=== PATIENT | female | born 1945 | race Two or more races ===

== ENCOUNTER → 2023-11-13 | Outpatient (CLI) | payer OTHER ==
[2023-11-13 07:25] LABS: Urine Blood 1+ /uL (Negative); Urine Clarity Clear (Clear); Urine Color Colorless (Yellow); Urine Protein, UAD Negative (Negative); Urine Specific Gravity 1.006 (1.001-1.035); Urine Urobilinogen Normal (Negative); Urine pH 6.5 (5.0-8.0)
[2023-11-13 07:28] LABS: Folate (Folic Acid) > 24.00 ng/mL (>5.38)
[2023-11-13 07:29] LABS: Ferritin 327.4 ng/mL (10-291)
[2023-11-13 07:33] LABS: Basophils # (auto) 0 10 ^3/uL (0-0.2); Basophils % (auto) 0.6 % (0.0-2.0); Eosinophils # (auto) 0.6 10 ^3/uL (0-0.8); Eosinophils % (auto) 7.9 % (0.0-7.0); Hematocrit 32.4 % (36.0-46.0); Hemoglobin 10.8 g/dL (12.2-16.2); Lymphocytes # (auto) 1.8 10 ^3/uL (0.4-5.4); Lymphocytes % (auto) 24.9 % (10.0-50.0); Mean Corpuscular Hemoglobin 31.1 pg (28.0-32.0); Mean Corpuscular Hgb Conc. 33.4 g/dL (32.0-36.0); Monocytes # (auto) 0.4 10 ^3/uL (0-1.3); Monocytes % (auto) 6.3 % (0.0-12.0); Neutrophils # (auto) 4.3 10 ^3/uL (1.6-8.6); Neutrophils % (auto) 60.3 % (37.0-80.0); Red Blood Cells 3.49 10^6/uL (4.0-5.20); Red Cell Distribution Width 13.3 % (11.8-14.3); White Blood Cell 7.1 10^3/uL (4.4-10.8)
[2023-11-13 07:35] LABS: % Iron Saturation 25.1 % (15-50)
[2023-11-13 07:37] LABS: Alanine Aminotransferase 14 U/L (7-40); Albumin 4.7 g/dL (3.2-4.8); Alkaline Phosphatase 53 U/L (46-116); Anion Gap 11 (5-15); Aspartate Aminotransferase 18 U/L (13-40); BUN/Creatinine Ratio 12.8 (10.0-20.0); Bilirubin, Total 0.5 mg/dL (0.2-1.0); Blood Urea Nitrogen 18 mg/dL (9-23); Calcium 9.9 mg/dL (8.5-10.1); Carbon Dioxide 24 mmol/L (20-30); Chloride 107 mmol/L (98-107); Cholesterol 145 mg/dL (< 200); Glucose 112 mg/dL (74-106); HDL Cholesterol 61 mg/dL (40-59); LDL Cholesterol 64 mg/dL (< 100); Potassium 4.1 mmol/L (3.5-5.1); Sodium 142 mmol/L (136-145); Total Protein 7.8 g/dL (5.7-8.2); Triglycerides 109 mg/dL (< 150)
== END | disposition home or self-care (01) ==
LOC: LAB 06:16
PROVIDERS: ATTEND Family Medicine
DX: I12.9 Hypertensive chronic kidney disease with stage 1 through stage 4 chronic kidney disease, or unspecified chronic kidney disease (principal); E11.22 Type 2 diabetes mellitus with diabetic chronic kidney disease; N18.9 Chronic kidney disease, unspecified; E11.65 Type 2 diabetes mellitus with hyperglycemia; E11.42 Type 2 diabetes mellitus with diabetic polyneuropathy; E78.5 Hyperlipidemia, unspecified; D64.9 Anemia, unspecified; M81.0 Age-related osteoporosis without current pathological fracture; E11.29 Type 2 diabetes mellitus with other diabetic kidney complication
CPT/HCPCS: 36415; 80053; 80061; 81003; 82043; 82607; 82728; 82746; 83036; 83540; 83550; 84443; 84550; 85025

== ENCOUNTER → 2023-11-24 | Outpatient (CLI) | payer OTHER ==
[2023-11-24 09:37] LABS: Creatinine, Urine 45.95 mg/dL (30.0-125.0); Protein, Urine 7.4 mg/dL (0.0-11.9)
[2023-11-24 12:20] LABS: Urine Protein/Creatinine Ratio 0.16
[2023-11-25 14:06] LABS: Alpha-1-Globulin Urine 3.8 % (.); Alpha-2-Globulin Urine 10.8 % (.); Beta Globulin Urine 20.2 % (.); Gamma Globulin Urine 17.3 % (.); Protein 24hr calculated 130 mg/24 hr (30-150); Protein Total Urine 10.8 mg/dL (Not Estab.)
== END | disposition home or self-care (01) ==
LOC: LAB 08:32
PROVIDERS: ATTEND Internal Medicine Nephrology
DX: N18.31 Chronic kidney disease, stage 3a (principal); E56.9 Vitamin deficiency, unspecified; E21.3 Hyperparathyroidism, unspecified; R80.9 Proteinuria, unspecified; M10.9 Gout, unspecified; D63.1 Anemia in chronic kidney disease
CPT/HCPCS: 82270; 82570; 82575; 84156; 84166; 84300; 86335

== ENCOUNTER → 2024-01-21 | Outpatient (CLI) | payer OTHER ==
[2024-01-21 06:31] LABS: Urine Bacteria None Seen /hpf (None Seen)
[2024-01-21 07:12] LABS: Urine Blood Negative /uL (Negative); Urine Clarity Clear (Clear); Urine Protein, UAD Negative (Negative); Urine Specific Gravity 1.004 (1.001-1.035); Urine Urobilinogen Normal (Negative); Urine WBC <1 /hpf (0 - 5)
[2024-01-21 07:16] LABS: Basophils # (auto) 0 10 ^3/uL (0-0.2); Basophils % (auto) 0.8 % (0.0-2.0); Eosinophils # (auto) 0.7 10 ^3/uL (0-0.8); Eosinophils % (auto) 11.3 % (0.0-7.0); Hematocrit 31.9 % (36.0-46.0); Hemoglobin 10.5 g/dL (12.2-16.2); Lymphocytes # (auto) 1.3 10 ^3/uL (0.4-5.4); Lymphocytes % (auto) 20.5 % (10.0-50.0); Mean Corpuscular Hemoglobin 30.8 pg (28.0-32.0); Mean Corpuscular Hgb Conc. 33.1 g/dL (32.0-36.0); Mean Corpuscular Volume 93.1 fL (80.0-100.0); Monocytes # (auto) 0.4 10 ^3/uL (0-1.3); Monocytes % (auto) 6.1 % (0.0-12.0); Neutrophils # (auto) 3.9 10 ^3/uL (1.6-8.6); Neutrophils % (auto) 61.3 % (37.0-80.0); Red Blood Cells 3.43 10^6/uL (4.0-5.20); Red Cell Distribution Width 13.3 % (11.8-14.3); White Blood Cell 6.4 10^3/uL (4.4-10.8)
[2024-01-21 07:19] LABS: Urine Color Straw (Yellow)
[2024-01-21 07:38] LABS: Protein, Urine 18.1 mg/dL (0.0-11.9)
[2024-01-21 07:40] LABS: Potassium 4.4 mmol/L (3.5-5.1)
[2024-01-21 07:41] LABS: Calcium 9.7 mg/dL (8.5-10.1); Creatinine, Urine 15.69 mg/dL (30.0-125.0); Urine Protein/Creatinine Ratio 1.15
[2024-01-21 07:46] LABS: Albumin 4.7 g/dL (3.2-4.8); BUN/Creatinine Ratio 15.3 (10.0-20.0)
[2024-01-21 07:48] LABS: Phosphorus 4.1 mg/dL (2.4-5.1)
[2024-01-21 07:58] LABS: Uric Acid 5.9 mg/dL (3.1-7.8)
[2024-01-21 08:32] LABS: 24 Hr. Total Protein, Urine 298.6 mg/24 Hr (<149.1)
== END | disposition home or self-care (01) ==
LOC: LAB 06:18
PROVIDERS: ATTEND Internal Medicine Nephrology
DX: N18.31 Chronic kidney disease, stage 3a (principal); R80.9 Proteinuria, unspecified; M10.9 Gout, unspecified; E21.3 Hyperparathyroidism, unspecified; E56.9 Vitamin deficiency, unspecified; D63.1 Anemia in chronic kidney disease
CPT/HCPCS: 36415; 80069; 81001; 82306; 82570; 83970; 84156; 84300; 84550; 85025

== ENCOUNTER → 2024-12-01 | Outpatient (CLI) | payer OTHER ==
[2024-12-01 06:38] LABS: Urine Bacteria None Seen /hpf (None Seen)
[2024-12-01 07:12] LABS: Urine Blood TRACE /uL (Negative); Urine Clarity Clear (Clear); Urine Color Colorless (Yellow); Urine Protein, UAD TRACE (Negative); Urine Specific Gravity 1.009 (1.001-1.035); Urine Squamous Epithelial Cell FEW /hpf (<5); Urine Urobilinogen Normal (Negative); Urine WBC < 1 /HPF (0-5)
[2024-12-01 07:17] LABS: Alanine Aminotransferase 15 U/L (7-40); Alkaline Phosphatase 56 U/L (46-116); Anion Gap 13 (5-15); BUN/Creatinine Ratio 18.3 (10.0-20.0); Calcium 10.3 mg/dL (8.7-10.4); Carbon Dioxide 23 mmol/L (20-31); Chloride 104 mmol/L (98-107); GFR African American 37 mL/min; GFR Non-African American 31 mL/min; Potassium 4.5 mmol/L (3.5-5.1); Sodium 140 mmol/L (136-145); Triglycerides 105 mg/dL (< 150)
[2024-12-01 07:18] LABS: LDL Cholesterol 73 mg/dL (< 100)
[2024-12-01 07:19] LABS: Aspartate Aminotransferase 14 U/L (13-40); Bilirubin, Total 0.5 mg/dL (0.2-1.0); Cholesterol 175 mg/dL (< 200)
[2024-12-01 07:27] LABS: Albumin 5.1 g/dL (3.2-4.8); Blood Urea Nitrogen 31 mg/dL (9-23); Glucose 120 mg/dL (74-106); HDL Cholesterol 81 mg/dL (40-59)
[2024-12-01 07:28] LABS: Hematocrit 35.2 % (36.0-46.0); Hemoglobin 11.5 g/dL (12.2-16.2); Mean Corpuscular Hemoglobin 30.9 pg (28.0-32.0); Mean Corpuscular Hgb Conc. 32.8 g/dL (32.0-36.0); Mean Corpuscular Volume 94.3 fL (80.0-100.0); Platelet Count (auto) 253 10^3/uL (140-450); Red Blood Cells 3.74 10^6/uL (4.0-5.20); Red Cell Distribution Width 13.3 % (11.8-14.3); White Blood Cell 6.7 10^3/uL (4.4-10.8)
[2024-12-01 07:35] LABS: Band Neutrophils % (manual) 0; Basophils % (manual) 0 (0.0-2.0); Blast Cells 0; Metamyelocytes % 0; Myelocytes % 0; Promyelocytes % 0; Reactive Lymphocytes 0
[2024-12-01 07:40] LABS: Creatinine, Urine 39.05 mg/dL (30.0-125.0)
[2024-12-01 08:14] LABS: Eosinophils % (manual) 12 (0-7); Lymphocytes % (manual) 16 (10.0-50.0); Monocytes % (manual) 2 (0-12)
[2024-12-01 08:15] LABS: Platelet Estimate Adequate
[2024-12-01 10:48] LABS: Uric Acid 6.7 mg/dL (3.1-7.8)
== END | disposition home or self-care (01) ==
LOC: LAB 06:09
PROVIDERS: ATTEND Family Medicine
DX: I12.9 Hypertensive chronic kidney disease with stage 1 through stage 4 chronic kidney disease, or unspecified chronic kidney disease (principal); E11.22 Type 2 diabetes mellitus with diabetic chronic kidney disease; N18.32 Chronic kidney disease, stage 3b; E11.65 Type 2 diabetes mellitus with hyperglycemia; N20.0 Calculus of kidney; E78.2 Mixed hyperlipidemia
CPT/HCPCS: 36415; 80053; 80061; 80069; 81001; 82043; 82306; 82570; 83036; 83605; 83970; 84550; 85007; 85027

== ENCOUNTER → 2025-02-15 | Outpatient (CLI) | payer OTHER ==
[2025-02-15 06:51] LABS: Hematocrit 33.7 % (36.0-46.0); Hemoglobin 11.4 g/dL (12.2-16.2); Mean Corpuscular Hemoglobin 31.6 pg (28.0-32.0); Mean Corpuscular Hgb Conc. 33.8 g/dL (32.0-36.0); Mean Corpuscular Volume 93.5 fL (80.0-100.0); Platelet Count (auto) 235 10^3/uL (140-450); Red Cell Distribution Width 12.9 % (11.8-14.3); White Blood Cell 6.8 10^3/uL (4.4-10.8)
[2025-02-15 06:52] LABS: Urine Bacteria FEW /hpf (None Seen); Urine Blood Negative /uL (Negative); Urine Clarity Clear (Clear); Urine Color Colorless (Yellow); Urine Protein, UAD TRACE (Negative); Urine Squamous Epithelial Cell FEW /hpf (<5); Urine Urobilinogen Normal (Negative); Urine WBC < 1 /HPF (0-5); Urine pH 6.5 (5.0-9.0)
[2025-02-15 07:13] LABS: Band Neutrophils % (manual) 0; Basophils % (manual) 0 (0.0-2.0); Blast Cells 0; Metamyelocytes % 0; Myelocytes % 0; Promyelocytes % 0; Reactive Lymphocytes 0
[2025-02-15 07:40] LABS: Alanine Aminotransferase 15 U/L (7-40); Alkaline Phosphatase 57 U/L (46-116); Anion Gap 10 (5-15); Aspartate Aminotransferase 16 U/L (13-40); BUN/Creatinine Ratio 18.8 (10.0-20.0); Carbon Dioxide 26 mmol/L (20-31); Chloride 106 mmol/L (98-107); Cholesterol 159 mg/dL (< 200); LDL Cholesterol 60 mg/dL (< 100); Potassium 4.6 mmol/L (3.5-5.1); Sodium 142 mmol/L (136-145); Total Protein 7.9 g/dL (5.7-8.2); Triglycerides 117 mg/dL (< 150)
[2025-02-15 07:41] LABS: Albumin 4.8 g/dL (3.2-4.8); Bilirubin, Total 0.4 mg/dL (0.2-1.0); Blood Urea Nitrogen 33 mg/dL (9-23); Calcium 10.5 mg/dL (8.7-10.4); Glucose 113 mg/dL (74-106); HDL Cholesterol 76 mg/dL (40-59)
[2025-02-15 07:52] LABS: Uric Acid 6.5 mg/dL (3.1-7.8)
[2025-02-15 09:23] LABS: Eosinophils % (manual) 22 (0-7); Lymphocytes % (manual) 20 (10.0-50.0); Monocytes % (manual) 5 (0-12); Platelet Estimate Adequate; RBC Morphology Normal
== END | disposition home or self-care (01) ==
LOC: LAB 06:06
PROVIDERS: ATTEND Family Medicine
DX: E11.610 Type 2 diabetes mellitus with diabetic neuropathic arthropathy (principal); E11.22 Type 2 diabetes mellitus with diabetic chronic kidney disease; Z18.32 Retained tooth; N18.32 Chronic kidney disease, stage 3b; N20.0 Calculus of kidney; E11.618 Type 2 diabetes mellitus with other diabetic arthropathy; E05.90 Thyrotoxicosis, unspecified without thyrotoxic crisis or storm; Q61.5 Medullary cystic kidney; Z00.01 Encounter for general adult medical examination with abnormal findings
CPT/HCPCS: 36415; 80053; 80061; 81001; 82043; 82270; 83036; 84443; 84550; 85007; 85027

== ENCOUNTER 2025-04-28 07:49 | Outpatient (CLI) | payer OTHER ==
[2025-04-28 08:52] LABS: Urine Protein, UAD Negative (Negative)
== END 2025-04-28 17:00 | disposition home or self-care (01) ==
LOC: LAB 07:49
PROVIDERS: ATTEND Urology
DX: N39.9 Disorder of urinary system, unspecified (principal)
CPT/HCPCS: 81001; 87086

== ENCOUNTER 2025-05-10 06:18 | Outpatient (CLI) | payer OTHER ==
[2025-05-10 08:02] LABS: Alanine Aminotransferase 14 U/L (7-40); Alkaline Phosphatase 48 U/L (46-116); Anion Gap 11 (5-15); BUN/Creatinine Ratio 18.9 (10.0-20.0); Calcium 9.9 mg/dL (8.7-10.4); Carbon Dioxide 23 mmol/L (20-31); Chloride 106 mmol/L (98-107); Cholesterol 156 mg/dL (< 200); Potassium 4.8 mmol/L (3.5-5.1); Sodium 140 mmol/L (136-145); Total Protein 7.6 g/dL (5.7-8.2); Triglycerides 118 mg/dL (< 150)
[2025-05-10 08:03] LABS: Bilirubin, Total 0.5 mg/dL (0.2-1.0)
[2025-05-10 08:05] LABS: Albumin 4.9 g/dL (3.2-4.8); Blood Urea Nitrogen 33 mg/dL (9-23); Glucose 108 mg/dL (74-106); HDL Cholesterol 71 mg/dL (40-59)
[2025-05-10 08:31] LABS: Urine Protein, UAD Negative (Negative)
[2025-05-10 08:35] LABS: Protein, Urine 16.7 mg/dL (1-14)
== END 2025-05-10 17:00 | disposition home or self-care (01) ==
LOC: LAB 06:18
PROVIDERS: ATTEND Family Medicine
DX: I12.9 Hypertensive chronic kidney disease with stage 1 through stage 4 chronic kidney disease, or unspecified chronic kidney disease (principal); E11.22 Type 2 diabetes mellitus with diabetic chronic kidney disease; N18.30 Chronic kidney disease, stage 3 unspecified; N39.0 Urinary tract infection, site not specified; E11.65 Type 2 diabetes mellitus with hyperglycemia; R80.9 Proteinuria, unspecified; E21.3 Hyperparathyroidism, unspecified; M10.9 Gout, unspecified; E55.9 Vitamin D deficiency, unspecified; E78.5 Hyperlipidemia, unspecified; E78.2 Mixed hyperlipidemia; D63.1 Anemia in chronic kidney disease
CPT/HCPCS: 36415; 80053; 80061; 81001; 82570; 83036; 84156

== ENCOUNTER → 2025-08-10 | Outpatient (CLI) | payer OTHER ==
[2025-08-10 07:26] LABS: Hematocrit 32.8 % (36.0-46.0); Hemoglobin 11.0 g/dL (12.2-16.2); Mean Corpuscular Hemoglobin 31.8 pg (28.0-32.0); Mean Corpuscular Volume 94.6 fL (80.0-100.0)
[2025-08-10 07:30] LABS: Urine Protein, UAD Negative (Negative)
[2025-08-10 07:52] LABS: Alanine Aminotransferase 14 U/L (7-40); Albumin 4.7 g/dL (3.2-4.8); Alkaline Phosphatase 54 U/L (46-116); Anion Gap 13 (5-15); BUN/Creatinine Ratio 15.5 (10.0-20.0); Calcium 9.3 mg/dL (8.7-10.4); Carbon Dioxide 22 mmol/L (20-31); Cholesterol 152 mg/dL (< 200); Potassium 4.8 mmol/L (3.5-5.1); Sodium 144 mmol/L (136-145); Total Protein 7.9 g/dL (5.7-8.2); Triglycerides 99 mg/dL (< 150)
[2025-08-10 07:53] LABS: Bilirubin, Total 0.5 mg/dL (0.2-1.0)
[2025-08-10 07:59] LABS: Blood Urea Nitrogen 28 mg/dL (9-23); Chloride 109 mmol/L (98-107); Glucose 106 mg/dL (74-106); HDL Cholesterol 72 mg/dL (40-59)
[2025-08-10 08:07] LABS: Protein, Urine 20.5 mg/dL (1-14)
[2025-08-10 08:44] LABS: Total Cells Counted 100.0 (100)
[2025-08-10 08:50] LABS: Uric Acid 6.4 mg/dL (3.1-7.8)
== END | disposition home or self-care (01) ==
LOC: LAB 06:58
PROVIDERS: ATTEND Internal Medicine
DX: E11.22 Type 2 diabetes mellitus with diabetic chronic kidney disease (principal); N18.30 Chronic kidney disease, stage 3 unspecified; E11.21 Type 2 diabetes mellitus with diabetic nephropathy; E21.3 Hyperparathyroidism, unspecified; E11.42 Type 2 diabetes mellitus with diabetic polyneuropathy; E55.9 Vitamin D deficiency, unspecified; D63.1 Anemia in chronic kidney disease; N20.0 Calculus of kidney; N39.0 Urinary tract infection, site not specified; M10.9 Gout, unspecified; R80.9 Proteinuria, unspecified
CPT/HCPCS: 36415; 80053; 80061; 80069; 81001; 82570; 83036; 83735; 83970; 84156; 84550; 85007; 85027